=== PATIENT | male | born 1950 | race Caucasian/White ===

== ENCOUNTER 2019-02-27 07:32 | Emergency (ER) | payer MEDICARE ==
[~2019-02-27 07:32] MED LIST: ALBU8.5H12 IH; AZIT-18 PO; DM/P295L PO; HYDR-653 PO; IBUP-136 PO; INDO-23 PO
--- NOTE | 2019-02-27 07:34 | ER Report ---
History and Physical Time Seen By MD: 07:34 HPI/ROS CHIEF COMPLAINT: Abdominal pain HISTORY OF PRESENT ILLNESS: Patient is a 68-year-old male who presents to the emergency department with complaint of bilateral lower quadrant and suprapubic abdominal pain that began approximately 3 days ago and has progressively worsened. He states that the pain comes in waves and can get quite intense. He states that last night he was unable to sleep secondary to the pain. He did try to treat his pain with Tylenol without success. He denies fevers or chills. He denies nausea vomiting or diarrhea. States that this feels similar to a perirectal abscess that he had approximately 7 years ago that required surgery that was done in [facility] [place]. His only other medical problems that he admits to is a history of gout which he occasionally takes indomethacin for. He denies any anorexia. Last meal was this morning with serial around 6 AM. States that he tolerated that without difficulty. REVIEW OF SYSTEMS: Constitutional: No fever, no chills. Eyes: No discharge. ENT: No sore throat. Cardiovascular: No chest pain, no palpitations. Respiratory: No cough, no shortness of breath. Gastrointestinal: Bilateral lower quadrant abdominal pain and suprapubic abdominal pain Genitourinary: No hematuria. And eyes dysuria or penile discharge Musculoskeletal: No back pain. Skin: No rashes. Neurological: No headache. Allergies: Coded Allergies: Penicillins (Unverified Allergy, Severe, 02/27/19) allopurinol (Verified Allergy, Intermediate, HIVES, 02/27/19) Home Meds Active Scripts Metronidazole (FLAGYL) 500 Mg Tablet, 500 MG PO BID, #20 TAB 0 Refills Prov:WALESKA ROBERTS MD 02/27/19 Ciprofloxacin Hcl 500 Mg Tab (CIPRO 500 MG TAB) 500 Mg Tablet, 500 MG PO BID, #20 TAB 0 Refills Prov:WALESKA ROBERTS MD 02/27/19 Hydrocodone Bit/Acetaminophen (HYDROCODON-ACETAMINOPHEN 5-325) 1 Each Tablet, 1 EACH PO Q6H PRN for PAIN, #8 TAB 0 Refills TAKE ONE TABLET BY MOUTH EVERY 4-6 HOURS NEEDED FOR PAIN Prov:WALESKA ROBERTS MD 02/27/19 Ondansetron Hcl (ZOFRAN) 4 Mg Tablet, 4 MG PO Q8H for Nausea, #15 TAB 0 Refills Prov:WALESKA ROBERTS MD 02/27/19 Indomethacin (INDOMETHACIN) 50 Mg Capsule, 1 TAB PO TID PRN for gout pain, #30 CAPSULE 0 Refills Prov:OPHELIA CARDENAS APRNP-C 02/17/15 Discontinued Reported Medications Ibuprofen (IBUPROFEN) 200 Mg Capsule, 3 CAP PO Q6H, CAPSULE 12/10/14 Past Medical/Surgical History Patient has a past medical history of rectal abscess. Patient has surgical history of rectal abscess drainage. History of gout Hx Smoking: Yes Smoking Status: Former Smoker Hx Substance Use Disorder: No Hx Alcohol Use: No Constitutional Vital Sign - Last 24 Hours 02/27/19 02/27/19 02/27/19 02/27/19 07:37 07:45 07:49 08:00 Temp 98.9 Pulse 114 110 106 Resp 18 B/P (MAP) 146/94 136/87 (103) Pulse Ox 90 91 90 O2 Delivery Room Air O2 Flow Rate 1.0 02/27/19 02/27/19 02/27/19 02/27/19 08:15 08:30 08:51 09:00 Pulse 101 94 B/P (MAP) 143/79 (100) Pulse Ox 89 92 91 02/27/19 02/27/19 02/27/19 02/27/19 09:15 09:30 09:45 10:00 Pulse 94 92 88 93 Pulse Ox 91 92 91 91 02/27/19 02/27/19 02/27/19 02/27/19 10:15 10:30 10:45 11:00 Pulse 87 84 94 95 B/P (MAP) 128/77 (94) Pulse Ox 91 91 90 87 02/27/19 02/27/19 02/27/19 11:15 11:30 11:45 Pulse 86 82 86 B/P (MAP) 113/73 (86) Pulse Ox 89 89 92 Physical Exam General Appearance: The patient is alert, has no immediate need for airway protection and no signs of toxicity. Eyes: Pupils equal and round no pallor or injection. ENT, Mouth: Mucous membranes are moist. Respiratory: There are no retractions, lungs are clear to auscultation. Cardiovascular: Regular rate and rhythm. Gastrointestinal: Abdomen is protuberant without guarding or peritoneal signs there is diffuse tenderness along the left lower, suprapubic and right lower quadrants. Bowel sounds are slightly diminished. Neurological: Awake and alert Skin: Warm and dry, no rashes. Musculoskeletal: Neck is supple non tender. Extremities are nontender, nonswollen and have full range of motion. Medical Decision Making Data Points Result Diagram: 02/27/19 0745 02/27/19 0745 Laboratory Hematology Test 02/27/19 07:45 02/27/19 08:25 Red Blood Count 6.94 M/uL (4.00-5.60) Mean Corpuscular Volume 90.8 fL (80.0-96.0) Mean Corpuscular Hemoglobin 31.6 pg (26.0-33.0) Mean Corpuscular Hemoglobin Concent 34.8 g/dL (32.0-36.0) Red Cell Distribution Width 14.5 % (11.5-14.5) Mean Platelet Volume 7.4 fL (7.2-11.1) Neutrophils (%) (Auto) 80.7 % (39.4-72.5) Lymphocytes (%) (Auto) 11.7 % (17.6-49.6) Monocytes (%) (Auto) 6.0 % (4.1-12.4) Eosinophils (%) (Auto) 1.0 % (0.4-6.7) Basophils (%) (Auto) 0.6 % (0.3-1.4) Nucleated RBC Relative Count (auto) 0.3 /100WBC Neutrophils # (Auto) 8.1 K/uL (2.0-7.4) Lymphocytes # (Auto) 1.2 K/uL (1.3-3.6) Monocytes # (Auto) 0.6 K/uL (0.3-1.0) Eosinophils # (Auto) 0.1 K/uL (0.0-0.5) Basophils # (Auto) 0.1 K/uL (0.0-0.1) Nucleated RBC Absolute Count (auto) 0.03 K/uL Sodium Level 138 mmol/L (137-145) Potassium Level 4.2 mmol/L (3.5-5.0) Chloride Level 99 mmol/L (98-107) Carbon Dioxide Level 24 mmol/L (22-30) Blood Urea Nitrogen 12 mg/dl (9-21) Creatinine 1.10 mg/dl (0.66-1.25) Glomerular Filtration Rate Calc > 60.0 Random Glucose 198 mg/dl (75-110) Hemoglobin A1c 5.8 % (4.6-6.0) Calcium Level 9.5 mg/dl (8.4-10.2) Total Bilirubin 1.0 mg/dl (0.2-1.3) Aspartate Amino Transf (AST/SGOT) 20 U/L (0-35) Alanine Aminotransferase (ALT/SGPT) 40 U/L (0-56) Alkaline Phosphatase 62 U/L (0-126) Total Protein 7.4 g/dl (6.3-8.2) Albumin 4.2 g/dl (3.5-5.0) Lipase 37 U/L (23-300) Helicobacter pylori IgG Antibody Negative (NEGATIVE) Urine Color Yellow Urine Clarity Clear Urine pH 6.0 pH (4.8-9.5) Urine Specific [place] 1.013 Urine Protein 100 mg/dL (NEGATIVE) Urine Glucose (UA) 50 mg/dL (NEGATIVE) Urine Ketones Negative mg/dL (NEGATIVE) Urine Blood Small (NEGATIVE) Urine Nitrite Negative (NEGATIVE) Urine Bilirubin Negative (NEGATIVE) Urine Urobilinogen Negative mg/dL (0.2-1.9) Urine Leukocyte Esterase Negative (NEGATIVE) Urine RBC 1 /HPF (0-2/HPF) Urine WBC None /HPF (0-5/HPF) Urine Squamous Epithelial Cells None /LPF (</=FEW) Urine Bacteria Negative /HPF (NONE-FEW) Urine Granular Casts Few /LPF (NONE) Urine Mucus None /HPF (NONE-FEW) Chemistry Test 02/27/19 07:45 02/27/19 08:25 White Blood Count 10.0 k/uL (4.5-11.0) Red Blood Count 6.94 M/uL (4.00-5.60) Hemoglobin 21.9 g/dL (14.0-18.0) Hematocrit 63.0 % (42.0-52.0) Mean Corpuscular Volume 90.8 fL (80.0-96.0) Mean Corpuscular Hemoglobin 31.6 pg (26.0-33.0) Mean Corpuscular Hemoglobin Concent 34.8 g/dL (32.0-36.0) Red Cell Distribution Width 14.5 % (11.5-14.5) Platelet Count 112 K/uL (150-450) Mean Platelet Volume 7.4 fL (7.2-11.1) Neutrophils (%) (Auto) 80.7 % (39.4-72.5) Lymphocytes (%) (Auto) 11.7 % (17.6-49.6) Monocytes (%) (Auto) 6.0 % (4.1-12.4) Eosinophils (%) (Auto) 1.0 % (0.4-6.7) Basophils (%) (Auto) 0.6 % (0.3-1.4) Nucleated RBC Relative Count (auto) 0.3 /100WBC Neutrophils # (Auto) 8.1 K/uL (2.0-7.4) Lymphocytes # (Auto) 1.2 K/uL (1.3-3.6) Monocytes # (Auto) 0.6 K/uL (0.3-1.0) Eosinophils # (Auto) 0.1 K/uL (0.0-0.5) Basophils # (Auto) 0.1 K/uL (0.0-0.1) Nucleated RBC Absolute Count (auto) 0.03 K/uL Glomerular Filtration Rate Calc > 60.0 Hemoglobin A1c 5.8 % (4.6-6.0) Calcium Level 9.5 mg/dl (8.4-10.2) Total Bilirubin 1.0 mg/dl (0.2-1.3) Aspartate Amino Transf (AST/SGOT) 20 U/L (0-35) Alanine Aminotransferase (ALT/SGPT) 40 U/L (0-56) Alkaline Phosphatase 62 U/L (0-126) Total Protein 7.4 g/dl (6.3-8.2) Albumin 4.2 g/dl (3.5-5.0) Lipase 37 U/L (23-300) Helicobacter pylori IgG Antibody Negative (NEGATIVE) Urine Color Yellow Urine Clarity Clear Urine pH 6.0 pH (4.8-9.5) Urine Specific [place] 1.013 Urine Protein 100 mg/dL (NEGATIVE) Urine Glucose (UA) 50 mg/dL (NEGATIVE) Urine Ketones Negative mg/dL (NEGATIVE) Urine Blood Small (NEGATIVE) Urine Nitrite Negative (NEGATIVE) Urine Bilirubin Negative (NEGATIVE) Urine Urobilinogen Negative mg/dL (0.2-1.9) Urine Leukocyte Esterase Negative (NEGATIVE) Urine RBC 1 /HPF (0-2/HPF) Urine WBC None /HPF (0-5/HPF) Urine Squamous Epithelial Cells None /LPF (</=FEW) Urine Bacteria Negative /HPF (NONE-FEW) Urine Granular Casts Few /LPF (NONE) Urine Mucus None /HPF (NONE-FEW) Urinalysis Test 02/27/19 08:25 Urine Color Yellow Urine Clarity Clear Urine pH 6.0 pH (4.8-9.5) Urine Specific [place] 1.013 Urine Protein 100 mg/dL (NEGATIVE) Urine Glucose (UA) 50 mg/dL (NEGATIVE) Urine Ketones Negative mg/dL (NEGATIVE) Urine Blood Small (NEGATIVE) Urine Nitrite Negative (NEGATIVE) Urine Bilirubin Negative (NEGATIVE) Urine Urobilinogen Negative mg/dL (0.2-1.9) Urine Leukocyte Esterase Negative (NEGATIVE) Urine RBC 1 /HPF (0-2/HPF) Urine WBC None /HPF (0-5/HPF) Urine Squamous Epithelial Cells None /LPF (</=FEW) Urine Bacteria Negative /HPF (NONE-FEW) Urine Granular Casts Few /LPF (NONE) Urine Mucus None /HPF (NONE-FEW) EKG/Imaging Imaging FACILITY: [facility] PATIENT NAME: David Etienne : 1950 MR: [id number] V: [id number] EXAM DATE: [id number] ORDERING PHYSICIAN: WALESKA ROBERTS TECHNOLOGIST: [facility] Patient: David Etienne : 1950 Visit/Account:[id number] Date of Sevice: 02/27/2019 EXAMINATION: CT abdomen with IV contrast CT pelvis with IV contrast HISTORY: Abdominal pain. COMPARISON: None. TECHNIQUE: Axial images were taken through the abdomen and pelvis with intravenous contrast. Sagittal and coronal reformatted images are also submitted. CONTRAST: 75 mL of IV Isovue-370. One of the following dose optimization techniques was utilized in the performance of this exam: Automated exposure control; adjustment of the mA and/or kV according to the patient's size; or use of an iterative reconstruction technique. Specific details can be referenced in the facility's radiology CT exam operational policy. FINDINGS: Liver/biliary: Mild diffuse fatty infiltration of the liver. Gallbladder is partly contracted. There is no biliary ductal dilatation. Pancreas: Negative. Spleen: Negative. Adrenal glands: Negative. Kidneys: A few subcentimeter sharply defined hypodensities bilaterally, likely simple cysts. Pelvic structures: Prostate is mildly enlarged with a few coarse calcifications centrally. Bladder wall is mildly prominent, but the bladder is not completely distended. Bowel: Hypodense wall thickening of the sigmoid colon over a length of 6 cm, in an area of numerous diverticula, with at least one inflamed diverticulum. Normal caliber, thin-walled appendix below the cecum. Peritoneum/retroperitoneum/mesenteries: Inflammatory stranding adjacent to the abnormal sigmoid colon. No free air or discrete fluid collection. Vessels: Mild atherosclerotic calcifications. Vascular structures are patent. Musculoskeletal/body wall: Mild degenerative changes of the lumbar spine. Lymph nodes: Negative. Lower chest: Minimal bibasilar atelectasis. IMPRESSION: 1. Acute diverticulitis of the sigmoid colon. Colonic wall thickening is likely due to inflammation, if the patient is not up-to-date on his colonoscopy, colonoscopy should be done after the diverticulitis is treated. 2. No perforation or abscess. 3. Mild diffuse fatty infiltration of the liver. Report Dictated By: Poppy Marinelli MD at 02/27/2019 9:04 AM Report E-Signed By: Poppy Marinelli MD at 02/27/2019 9:12 AM [id number] ED Course/Re-evaluation Clinical Indication for ER IV: Hydration, IV Access ED Course 02/27/2019 7:53:51 am patient with bilateral lower quadrant and suprapubic abdominal pain, After history and physical exam was performed differential diagnosis was formulated which includes but is not limited to, urinary tract infection, ureterolithiasis, perirectal abscess, diverticulitis, appendicitis, c olitis. Plan at this time will be abdominal workup including CBC, CMP, lipase. We'll also check a CT scan of the abdomen and pelvis. We will give IV hydration, IV Toradol for pain and placed the patient in nothing by mouth status. 02/27/2019 8:37:24 am bedside ultrasound was performed which revealed bilateral normal appearance of the kidneys without evidence of hydronephrosis. Discussed with the patient the finding of hyperglycemia I did add on a hemoglobin A1c test to be used by his primary care provider to determine if he needs to undergo treatment for diabetes. Patient was also instructed that he will need to follow- up with his primary care provider for further testing for diabetes. Patient will be heading to CT scan at this time. 02/27/2019 9:54:53 am recent with acute uncomplicated diverticulitis we will give IV dose of Cipro and Levaquin as well as Flagyl and discharge the patient home on a ten-day course of those medications along with antinausea medicine and pain medicine we'll have him follow-up with his primary care provider for recheck of blood sugar as well as recommend follow-up with surgery for colonoscopy once a he has healed from his diverticulitis in 1-2 months. Decision to Disposition Date: Feb 27, 2019 Decision to Disposition Time: 09:58 Depart Departure Latest Vital Signs Vital Signs Date Time Temp Pulse Resp B/P (MAP) Pulse Ox O2 Delivery O2 Flow Rate FiO2 02/27/19 11:45 86 92 02/27/19 11:30 113/73 (86) 02/27/19 07:49 1.0 02/27/19 07:37 98.9 18 Room Air Impression: Primary Impression: Hyperglycemia Additional Impression: Diverticulitis Condition: Improved Disposition: HOME OR SELF-CARE Referrals: OPHELIA CARDENAS APRN [employer] DEVELOPMENT DIRECTOR-C (PCP) HENRY BABCOCK DO You were found to have an elevated blood sugar at 198 mg/dL, the normal range is between 60 and 120 mg/dL. The schedule a follow-up appointment with her primary care provider for diabetic testing New Scripts Metronidazole (FLAGYL) 500 Mg Tablet 500 MG PO BID, #20 TAB 0 Refills Prov: WALESKA ROBERTS MD 02/27/19 Ciprofloxacin Hcl 500 Mg Tab (CIPRO 500 MG TAB) 500 Mg Tablet 500 MG PO BID, #20 TAB 0 Refills Prov: WALESKA ROBERTS MD 02/27/19 Hydrocodone Bit/Acetaminophen (HYDROCODON-ACETAMINOPHEN 5-325) 1 Each Tablet 1 EACH PO Q6H PRN for PAIN, #8 TAB 0 Refills TAKE ONE TABLET BY MOUTH EVERY 4-6 HOURS NEEDED FOR PAIN Prov: WALESKA ROBERTS MD 02/27/19 Ondansetron Hcl (ZOFRAN) 4 Mg Tablet 4 MG PO Q8H for Nausea, #15 TAB 0 Refills Prov: WALESKA ROBERTS MD 02/27/19 Patient Instructions: Diverticulitis (DC), Diverticulitis Diet (ED), Hyperglycemia, Non-Diabetic (ED) Additional Instructions: Follow-up with your primary care provider in 2-4 weeks for recheck of your blood sugar. Make a follow-up with Dr. José Manuel Fofana who is a general surgeon to have a col onoscopy be performed in 1-2 months after you have healed from a diverticulitis Problem Qualifiers WALESKA ROBERTS MD Feb 27, 2019 07:34
[2019-02-27] MEDS ORDERED: NS(*) 0.9% 1000 ML BAG 1,000 ML IV ONE (07:35)
[2019-02-27] MEDS ORDERED: IOPAMIDOL 76% 100 ML INFUS BTL 100 ML ONE (07:55)
[2019-02-27] MEDS ORDERED: KETOROLAC 15 MG/ML VIAL IVP ONE ×2 (07:55→10:00)
[2019-02-27 08:12] LABS: PLATELET COUNT, AUTOMATED 112 K/uL (150-450)
--- NOTE | 2019-02-27 09:18 | RADIOLOGY IMAGING REPORT ---
[place] [facility] [place] David Etienne : 1950 MR: [id number] V: [id number] EXAM DATE: ORDERING PHYSICIAN: WALESKA ROBERTS TECHNOLOGIST: Location: [facility] - [place], [place] Patient: David Etienne : 1950 Visit/Account:[id number] Date of Sevice: 02/27/2019 EXAMINATION: CT abdomen with IV contrast CT pelvis with IV contrast HISTORY: Abdominal pain. COMPARISON: None. TECHNIQUE: Axial images were taken through the abdomen and pelvis with intravenous contrast. Sagitt al and coronal reformatted images are also submitted. CONTRAST: 75 mL of IV Isovue-370. One of the following dose optimization techniques was utilized in the performance of this exam: Autom ated exposure control; adjustment of the mA and/or kV according to the patient's size; or use of an i terative reconstruction technique. Specific details can be referenced in the facility's radiology C T exam operational policy. FINDINGS: Liver/biliary: Mild diffuse fatty infiltration of the liver. Gallbladder is partly contracted. There is no biliary ductal dilatation. Pancreas: Negative. Spleen: Negative. Adrenal glands: Negative. Kidneys: A few subcentimeter sharply defined hypodensities bilaterally, likely simple cysts. Pelvic structures: Prostate is mildly enlarged with a few coarse calcifications centrally. Bladder wall is mildly prominent, but the bladder is not completely distended. Bowel: Hypodense wall thickening of the sigmoid colon over a length of 6 cm, in an area of numerous d iverticula, with at least one inflamed diverticulum. Normal caliber, thin-walled appendix below the c ecum. Peritoneum/retroperitoneum/mesenteries: Inflammatory stranding adjacent to the abnormal sigmoid colon . No free air or discrete fluid collection. Vessels: Mild atherosclerotic calcifications. Vascular structures are patent. Musculoskeletal/body wall: Mild degenerative changes of the lumbar spine. Lymph nodes: Negative. Lower chest: Minimal bibasilar atelectasis. IMPRESSION: 1. Acute diverticulitis of the sigmoid colon. Colonic wall thickening is likely due to inflammation, if the patient is not up-to-date on his colonoscopy, colonoscopy should be done after the diverticuli tis is treated. 2. No perforation or abscess. 3. Mild diffuse fatty infiltration of the liver. Report Dictated By: Poppy Marinelli MD at 02/27/2019 9:04 AM Report E-Signed By: Poppy Marinelli MD at 02/27/2019 9:12 AM [id number]
[2019-02-27] MEDS ORDERED: LEVOFLOXACIN/D5W 750 MG/150 ML 150 ML IVPB ONE (09:30)
[2019-02-27] MEDS ORDERED: metroNIDAZOLE* 500MG/100ML BAG 100 ML IVPB ONE (09:30)
[2019-02-27] MEDS ORDERED: METR-1 PO (09:57)
[2019-02-27] MEDS ORDERED: LOR5/325 PO (09:57)
[2019-02-27] MEDS ORDERED: CIPR-344 PO (09:57)
[2019-02-27] MEDS ORDERED: ONDA4TAB97 PO (09:57)
[2019-02-27 11:30] VITALS: BP 113/73
== END 2019-02-27 12:02 | disposition home or self-care (01) ==
LOC: ER 07:36
DX: R73.9 Hyperglycemia, unspecified (principal); K57.30 Diverticulosis of large intestine without perforation or abscess without bleeding
CPT/HCPCS: 74177; 81001; 82040; 82247; 82310; 82374; 82435; 82565; 82947; 83036; 83690; 84075; 84132; 84155; 84295; 84450; 84460; 84520; 85025; 86677; 96361; 96365; 96366; 96375; 96376; 99284; J1885; J1956; J3490; J7030; Q9967